=== PATIENT | female | born 1970 | race Caucasian/White ===

== ENCOUNTER 2022-03-10 20:20 | Emergency (ER) | payer BC, MEDICAID ==
[2022-03-10] MEDS ORDERED: HYDROmorphone 0.5 MG/0.5 ML Syringe IVPUSH ONE ×2 (21:32→22:09)
[2022-03-10] MEDS ORDERED: ceFAZolin 2 GM in Sodium Chloride 0.9% 50 ML IV ONE (21:36)
[2022-03-10] MEDS ORDERED: HYDROmorphone 0.5 MG/0.5 ML Syringe ONE (21:42)
[2022-03-10] MEDS ORDERED: ceFAZolin 1 GM Vial ONE (21:42)
[2022-03-10] MEDS ORDERED: Sodium Chloride 0.9% 50 ML ONE (21:42)
== END 2022-03-10 22:55 ==
LOC: JD.ED 20:20
DX: S52.571B Other intraarticular fracture of lower end of right radius, initial encounter for open fracture type I or II (principal); S52.201B Unspecified fracture of shaft of right ulna, initial encounter for open fracture type I or II; W18.30XA Fall on same level, unspecified, initial encounter; Y92.009 Unspecified place in unspecified non-institutional (private) residence as the place of occurrence of the external cause
CPT/HCPCS: 36415; 73110; 80053; 80307; 85025; 86140; 87635; 96374; 96375; 96376; 99284; J0690; J1170; U0002